=== PATIENT | female | born 1950 | race Caucasian/White ===

== ENCOUNTER 2021-04-17 15:06 | Emergency (ER) | payer OTHER ==
[~2021-04-17] VITALS: Ht 160 cm; Wt 108.9 kg
[2021-04-17 17:10] VITALS: BP 154/72
== END 2021-04-17 17:10 | disposition home or self-care (01) ==
LOC: ER 15:06
DX: M25.561 Pain in right knee (principal); Z85.3 Personal history of malignant neoplasm of breast; Z90.710 Acquired absence of both cervix and uterus